=== PATIENT | male | born 1965 ===

== ENCOUNTER → 2017-06-27 | Outpatient (CLI) | payer BC ==
[2017-06-27 14:28] LABS: CHOLESTEROL/HDL RATIO 4.3; PROSTATE SPECIFIC ANTIGEN 2.27 ng/ml (0.000-4.000)
== END | disposition home or self-care (01) ==
LOC: C.LABMFLN 07:44
PROVIDERS: ATTEND Family Medicine
DX: Z00.00 Encounter for general adult medical examination without abnormal findings (principal); Z13.1 Encounter for screening for diabetes mellitus; Z13.220 Encounter for screening for lipoid disorders; Z12.5 Encounter for screening for malignant neoplasm of prostate

== ENCOUNTER → 2018-07-08 | Outpatient (CLI) | payer BC | END | disposition home or self-care (01) | LOC: C.LABMFLN 07:32 | PROVIDERS: ATTEND Family Medicine | DX: Z13.1 Encounter for screening for diabetes mellitus (principal); Z13.220 Encounter for screening for lipoid disorders ==